=== PATIENT | male | born 1965 ===

== ENCOUNTER 2021-03-08 17:30 | Emergency (ER) | payer SELFPAY ==
[2021-03-08 18:03] VITALS: BP 145/93
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
== END 2021-03-08 20:40 | disposition home or self-care (01) ==
LOC: ED 17:30
DX: M54.5 Low back pain (principal); Z79.899 Other long term (current) drug therapy
CPT/HCPCS: 99281